=== PATIENT | male | born 1950 | race American Indian/Alaskan Native ===

== ENCOUNTER 2018-09-12 10:33 | Outpatient (CLI) | payer MEDICARE, OTHER | END 2018-09-12 10:34 | disposition home or self-care (01) | LOC: C.PAT 10:33 | DX: L72.3 Sebaceous cyst (principal) ==

== ENCOUNTER → 2018-09-17 | Day surgery (SDC) | payer MEDICARE, OTHER ==
[2018-09-02 08:53] VITALS: BMI 25.0
[~2018-09-17] MED LIST: Lidocaine Hydrochloride 20 ML INJ ONE; Midazolam 2 MG/2 ML VIAL ONE
[2018-09-17 10:15] VITALS: O2SAT 99
--- NOTE | 2018-09-17 10:17 | PCM.SURG1 ---
Surgeon's Initial Post Op Note - Surgeon's Notes Surgeon: Makenna Alas MD Extern: Niraj PGY3 Pre-Operative Diagnosis: Left chest wall mass Operative Findings: Left chest wall sebaceous cyst Post-Operative Diagnosis: Left chest wall mass Operation Performed: Excision of left chest wall mass Specimen/Specimens Removed: left chest wall mass Estimated Blood Loss: EBL {In ML}: 5 Date of Surgery/Procedure: 09/17/18 Time of Surgery/Procedure: 10:16
[2018-09-17 10:23] VITALS: RESP 17
[2018-09-17 11:41] VITALS: BP 129/60; PULSE 63; TEMP 97.9
--- NOTE | 2018-09-17 19:46 | OP ---
PROCEDURE DATE: 09/17/2018 PREOPERATIVE DIAGNOSIS: Left chest wall mass. POSTOPERATIVE DIAGNOSIS: Left chest wall mass. OPERATION PERFORMED: Excision of left chest wall mass. SURGEON: Makenna Alas MD GASOLINE CATALYST OPERATOR: Amarjit Healy DO, PGY 3. ANESTHESIOLOGIST: Joseph Clemens MD ANESTHESIA: IV sedation with local. ESTIMATED BLOOD LOSS: 5 mL. DESCRIPTION OF OPERATION: Upon IV sedation, left chest wall mass was prepped and draped in the usual sterile fashion. A 10 mL of local anesthesia was injected surrounding this mass, which measured approximately 2 x 2 to 3 cm. The incision was made elliptically around the opening on the top of the mass and dissection was done with a [address] to the level below the mass. Care was taken to not enter the mass and minimal bleeding was encountered. Any bleeding was taken care of with electrocautery. Upon excision of mass, the area was irrigated and electrocautery was used to minimize any blood loss. Skin was then approximated using 4-0 Monocryl in interrupted fashion, three stitches were placed. The area was then cleaned and dried with wet and dry lap. Steri-Strips were used for dressing with 4 x 4 and iodine dressing. The patient tolerated the procedure well and returned to postoperative care unit afterwards. Estimated blood loss was 5 mL. Amarjit Healy DO Makenna Alas MD)
== END | disposition home or self-care (01) ==
LOC: C.SDS 07:14
PROVIDERS: ATTEND Specialist
DX: L72.3 Sebaceous cyst (principal); L82.1 Other seborrheic keratosis
CPT/HCPCS: 11403; 88307; J2250; J3010